=== PATIENT | female | born 1995 | race Caucasian/White ===

== ENCOUNTER 2017-01-14 17:46 | Emergency (ER) | payer OTHER ==
[2017-01-14 17:55] VITALS: RESP 16
--- NOTE | 2017-01-14 18:11 | UCPHY ---
H & P Time Seen by Provider: 01/14/17 18:10 Patient Type: New HPI/ROS: CHIEF COMPLAINT: Vaginal discharge, now external genitalia are swollen HISTORY OF PRESENT ILLNESS: Previously healthy 22-year-old female with no prior history of STD. She is now with a new consort however there has been no specific concerns for an STD. Some 2 days ago she started noting vaginal discharge. This was associated with some itching. Yesterday she tried some Monistat but instead of getting better she has gotten markedly worse with external genitalia swelling which turned out to be the labia minora and to a lesser extent majora. Further discharge continues. Her last application of the Monistat was last evening. Prior to that she was not wearing a panty liner. She did not inspect the vulva for vesicles. She has never been known to have HSV. P: Feels okay as long as she remains still Q: Achiness to the vulva. R: Strictly to the volar no radiation S: Moderate to severe T: 2 days ago We have discussed the prospect of doing STD surveillance testing due to the nature of the discharge precluding any other evaluation. Thereby she is agreed with and concurs with the plan for mine captain probe such as GC Chlamydia. REVIEW OF SYSTEMS: Constitutional: No fever, no chills.. Genitourinary: No hematuria or frequency. Musculoskeletal: No back pain. Skin: No rashes. Smoking Status: Never smoked Physical Exam: General Appearance: Alert, no distress. Afebrile. Normal phonation. No respiratory distress. She is here with her sister who she chose to remain during the history and physical. Abdomen: Soft and nontender, no masses, bowel sounds normal. Skin: Warm and dry, no rashes. External Genitalia: There is moderate swelling of the labia minora and to a lesser extent the majora. No lesions are seen. shaved no vesicles Vaginal Canal: thick, white discharge Cervix: There is a large amount of vaginal discharge precluding visualization of the cervix until cleared away with many sponge sticks Internal: She is particularly tender due to the amount of vaginal canal irritation inflammation and vulvar swelling then I am unable to perform an internal. Musculoskeletal: No joint swelling. Extremities: No edema. Homans sign negative. No cords. Psychiatric: Patient is oriented X 3, there is no agitation Constitutional: Initial Vital Signs Temperature (C) 36.8 C 01/14/17 17:51 Heart Rate 85 01/14/17 17:51 Respiratory Rate 16 01/14/17 17:51 Blood Pressure 129/67 H 01/14/17 17:51 O2 Sat (%) 98 01/14/17 17:51 O2 Delivery Mode Room Air Allergies/Adverse Reactions: No Known Allergies Allergy (Verified 01/14/17 17:52) Home Medications: Medication Instructions Recorded Betamethasone Roseann 0.1% 15 marleny TP TID #15 oint 01/14/17 Fluconazole [Diflucan (*)] 150 mg PO ONCE #0 tab 01/14/17 Nystatin/Triamcin [Mycolog II 1 marleny TP TID #21 cream 01/14/17 Cream (RX)] metroNIDAZOLE [Flagyl 500 mg (*)] 500 mg PO BID #14 tab 01/14/17 Medical Decision Making ED Course/Re-evaluation: Ultimately her wet mount came back positive for clue cells. Thereby we initiated Flagyl therapy and she was given the warning regarding use of alcohol. I feel that she will have an expeditious recovery should restart some steroids topically thereby she will have both prescriptions for the betamethasone which she is to use if they affirm testing is negative for yeast. However if the affirm test is positive for yeast then she should start both the Mycolog-II as well as the Diflucan. Thus, she has been given 3 prescriptions to fill out accordingly tomorrow based upon the results the affirm as above. Differential Diagnosis: Diagnostic considerations include, but are not limited to, the following: Vaginitis, bacterial vaginosis, yeast candidiasis, with swelling secondary same. Other considerations would include an STD with appropriate testing pending. - Data Points Laboratory Results: 01/14/17 01/14/17 01/14/17 18:42 17:58 17:58 Urine Color YELLOW Urine Appearance HAZY Urine pH 6.0 (5.0-7.5) Ur Specific [place] <= 1.005 (1.002-1.030) Urine Protein NEGATIVE (NEGATIVE) Urine Ketones NEGATIVE (NEGATIVE) Urine Blood TRACE H (NEGATIVE) Urine Nitrate NEGATIVE (NEGATIVE) Urine Bilirubin NEGATIVE (NEGATIVE) Urine Urobilinogen 0.2 EU EU (0.2-1.0) Ur Leukocyte Esterase 2+ H (NEGATIVE) Urine RBC 0-1 /hpf /hpf (0-3) Urine WBC 3-5 /hpf H /hpf (0-3) Ur Epithelial Cells 1+ /lpf /lpf (NONE-1+) Urine Bacteria TRACE /hpf H /hpf (NONE SEEN) Urine Mucus TRACE /lpf /lpf (NONE-1+) Urine Glucose NEGATIVE (NEGATIVE) Trichomonas (Wet Prep) CLUE CELLS PRESENT H Brittney species DNA Pending C.trachomatis RNA (TMA) Pending Gardnerella DNA Probe Pending N.gonorrhoeae RNA (TMA) Pending Trichomonas DNA Probe Pending Medications Given: Discontinued Medications Metronidazole (Flagyl) 500 mg PO EDNOW ONE PRN Reason: Protocol Stop: 01/14/17 19:35 Last Admin: 01/14/17 19:45 Dose: 500 mg Departure - Departure Disposition: Home, Routine, Self-Care Clinical Impression: Vaginitis and vulvovaginitis Condition: Good Instructions: Bacterial Vaginosis (ED), Vaginitis (ED) Additional Instructions: Call tomorrow after 4:00 p.m. for the diagnostic testing that is outstanding. In the meantime start the Flagyl tonight. Tomorrow you may need to start the betamethasone or the Mycolog-II but not both Based upon the results tomorrow afternoon you may need to start the Diflucan as well as the Mycolog-II. Referrals: NONE *PRIMARY CARE P,. [Primary Care Provider] - As per Instructions Stand Alone Forms: Work Excuse Prescriptions: Betamethasone Roseann 0.1% 15 marleny TP TID #15 oint Fluconazole [Diflucan (*)] 150 mg PO ONCE #0 tab metroNIDAZOLE [Flagyl 500 mg (*)] 500 mg PO BID #14 tab Nystatin/Triamcin [Mycolog II Cream (RX)] 1 marleny TP TID #21 cream - PQRS PQRS Measurement: NA Report Scribed for: Kenny Mendoza Report Scribed by: Paolo Schumacher Date of Report: 01/14/17 Time of Report: 18:10 Physician Review and Approval Statement: 01/14/17 18:10 Portions of this note were transcribed by a medical data entry clerk. I personally performed a history, physical exam, medical decision making, and confirmed accuracy of information the transcribed note.
[2017-01-14 18:14] LABS: COLOR YELLOW; LEUKOCYTE ESTERASE,URINE 2+ (NEGATIVE); NITRITE,URINE NEGATIVE (NEGATIVE)
[2017-01-14 18:31] LABS: BACTERIA TRACE /hpf (NONE SEEN); MUCUS TRACE /lpf (NONE-1+); RBC,URINE 0-1 /hpf (0-3)
[2017-01-14 19:09] LABS: WET MOUNT TRICHOMONAS CLUE CELLS PRESENT
[2017-01-14] MEDS ORDERED: metroNIDAZOLE 500 MG TAB PO ONE (19:34)
[2017-01-14 19:45] VITALS: BP 122/67; PULSE 88; TEMP 97.9; O2SAT 95
[2017-01-16 13:37] LABS: CHLAMYDIA AMPLIFICATION GENPRB NEGATIVE (NEGATIVE)
== END 2017-01-14 19:45 | disposition home or self-care (01) ==
LOC: CED 17:46
DX: N76.0 Acute vaginitis (principal)
CPT/HCPCS: 81003-PO; 81015-PO; 87210-PO; 99203-PO; G0463-PO